=== PATIENT | female | born 1965 | race Hispanic/Latino ===

== ENCOUNTER → 2018-02-21 | Outpatient (CLI) | payer OTHER ==
--- NOTE | 2018-02-21 09:26 | Diagnostic Imaging Report ---
PROCEDURE:CHEST 2 VIEWS TECHNIQUE:PA and lateral chest INDICATION:Preoperative evaluation for liposuction. COMPARISON:None. FINDINGS: Lungs are clear and symmetrically inflated. No pleural effusions. Normal heart size, mediastinal contour, and pulmonary vasculature. Intact skeleton with mild multilevel degenerative disc disease. CONCLUSION: No acute abnormality. Dictated by: Xavier Fofana M.D. on 02/21/2018 at 9:28 Electronically approved by: Xavier Fofana M.D. on 02/21/2018 at 9:28
== END ==
LOC: RAD 08:31
PROVIDERS: ATTEND Internal Medicine
DX: Z01.818 Encounter for other preprocedural examination (principal)
CPT/HCPCS: 71046